=== PATIENT | male | born 1965 | race Caucasian/White ===

== ENCOUNTER 2016-09-21 09:26 | Emergency (ER) | payer MEDICARE ==
[2016-09-21 09:27] VITALS: BMI 35.5
[2016-09-21 09:33] VITALS: TEMP 98.2
--- NOTE | 2016-09-21 10:06 | ED PDOC ---
Arrival/HPI - General Chief Complaint: High Blood Sugar Time Seen by Provider: 09/21/16 10:05 Historian: Patient - History of Present Illness Narrative History of Present Illness (Text): 09/21/16 10:05 51 year old male whose past medical history includes IDDM presents to the emergency department complaining of elevated blood sugar last night. Denies blurry vision, increased urination, nausea, or vomiting. Patient also reports left thigh discomfort and is concerned due to history of DVT. Time/Duration: 24 hours Symptom Onset: Gradual Symptom Course: Unchanged Associated Symptoms (Text): None Past Medical History - Provider Review Nursing Documentation Reviewed: Yes - Infectious Disease Hx of Infectious Diseases: None - Tetanus Immunization Tetanus Immunization: Unknown - Cardiac Hx Cardiac Disorders: Yes Hx Hypertension: Yes - Pulmonary Hx Respiratory Disorders: No - Neurological Hx Neurological Disorder: No - HEENT Hx HEENT Disorder: Yes Other/Comment: wears glasses - Renal Hx Renal Disorder: No Hx Dialysis: No - Endocrine/Metabolic Hx Endocrine Disorders: Yes Hx Diabetes Mellitus Type 1: Yes - Hematological/Oncological Hx Blood Disorders: No - Integumentary Hx Dermatological Disorder: No Other/Comment: Cellulitis of the right leg in the past - Musculoskeletal/Rheumatological Hx Musculoskeletal Disorders: Yes Hx Herniated Disk: Yes Other/Comment: sciatic nerve pain - Gastrointestinal Hx Gastrointestinal Disorders: No - Genitourinary/Gynecological Hx Genitourinary Disorders: No - Psychiatric Hx Psychophysiologic Disorder: Yes Hx Depression: Yes Hx Emotional Abuse: No Hx Physical Abuse: No Hx Substance Use: No - Surgical History Hx Orthopedic Surgery: Yes (left knee) - Anesthesia Hx Anesthesia: Yes Hx Anesthesia Reactions: No Hx Malignant Hyperthermia: No - Suicidal Assessment Feels Threatened In Home Enviroment: No Family/Social History - Physician Review Nursing Documentation Reviewed: Yes Family/Social History: Unknown Family HX Smoking Status: Never Smoked Hx Alcohol Use: No Hx Substance Use: No Hx Substance Use Treatment: No Allergies/Home Meds Allergies/Adverse Reactions: Allergies No Known Allergies Allergy (Verified 09/21/16 09:34) Home Medications: Home Meds Medication Instructions Recorded Confirmed Saxagliptin HCl/Metformin HCl 1 ter PO BID 09/14/12 12/30/15 [Kombiglyze Xr 500 mg-5 mg] Cyclobenzaprine [Flexeril] 1 tab PO BID 05/17/13 12/30/15 Diclofenac [Diclofenac] 75 mg PO DAILY 05/17/13 12/30/15 Insulin Detemir [Levemir Flexpen] 20 units SQ ACHS 10/24/14 12/30/15 Review of Systems - Physician Review All systems were reviewed & negative as marked: Yes Physical Exam - Physical Exam Narrative Physical Exam (Text): - Review of Systems Constitutional: Normal. absent: Fatigue, Weight Change, Fevers Eyes: Normal absent: Blurry vision ENT: Normal Respiratory: Normal absent: SOB, Cough, Sputum Cardiovascular: Left thigh discomfort absent: Chest pain, Palpitations, Syncope Gastrointestinal: Normal absent: Abdominal pain, Diarrhea, Nausea, Vomiting Genitourinary: Normal. absent: Dysuria, Frequency, Hematuria Musculoskeletal: Normal. absent: Arthralgias, Back Pain, Neck Pain Skin: Normal Neurological: Normal absent: Focal Weakness Endocrine: Normal Hemo/Lymphatic: Normal Psychiatric: Normal - Physical exam Patient appears age appropriate, speaking full sentences without difficulty - Systems Exam Head: Present: Atraumatic, Normocephalic Pupils: Present: PERRL Extraocular Muscles: Present: EOMI Conjunctiva: Present: Normal Mouth: Present: Moist Mucous Membranes Neck: Present: Normal Range of Motion. No: MIDLINE TENDERNESS, Paraspinal Tenderness Respiratory/Chest: Present: Clear to Auscultation, Good Air Exchange. No: Respiratory Distress, Accessory Muscle Use, Tachypneic Cardiovascular: Present: Regular Rate and Rhythm, Normal S1, S2, Peripheral Pulses Present. No: Murmurs Abdomen: Present: Normal Bowel Sounds, No: Tenderness, Peritoneal Signs, Rebound, Guarding, Distention Back: Present: Normal Inspection. No: Midline Tenderness, Paraspinal Tenderness Upper Extremity: Present: Normal Inspection. No: Cyanosis, Edema Lower Extremity: Present: Normal Inspection. No: Edema Neurological: Present: GCS=15, Speech Normal, cranial nerves II through XII fully intact with no cerebellar abnormality, neuro-sensory fully intact. No focal neurological deficits. Skin: Present: Warm, Dry, Normal Color. No: Rashes Lymphatic: Present: OX3, NI, NC Psychiatric: Present: Alert, Oriented x 3, Normal Insight, Normal Concentration Vital Signs Reviewed: Yes Vital Signs Temp Pulse Resp BP Pulse Ox 09/21/16 13:40 64 16 112/69 99 09/21/16 11:26 69 18 121/82 98 09/21/16 09:29 98.2 F 75 16 123/84 98 Temperature: Afebrile Blood Pressure: Normal Pulse: Regular Respiratory Rate: Normal Appearance: Positive for: Well-Appearing, Non-Toxic, Comfortable Pain Distress: None Mental Status: Positive for: Alert and Oriented X 3 Finger Stick Blood Glucose: 190 Medical Decision Making ED Course and Treatment: Impression: 51 year old male whose past medical history includes IDDM presents to the emergency department complaining of elevated blood sugar last night. On physical exam, patient has no acute findings. Plan: -- US lower extremity -- Labs -- Reassess and disposition Progress Notes: Ultrasound Extremity Adobe Maker : Luis F Mcgregor MD Report Date : 09/21/2016 14:29:58 FINDINGS: The visualized deep venous systems of both lower extremities are sonographically normal and compressible. Normal wave forms and augmentation are seen. There is no sonographic evidence for deep venous thrombosis in the visualized segments of both lower extremities. IMPRESSION: No sonographic evidence for deep venous thrombosis in the visualized segments of both lower extremities. 09/21/16 14:33 pt has no gap US neg for DVT per tech pt in no distress, denies complaints at this time states he feels comfortable being dc'd home with outpatient fu pt denies cp/sob/ibrahim/n/v/abd pain Pt states he understands to return to the ER right away for new or worsening symptoms or for inability to f/u with PMD or specialist as instructed. Patient states that he fully agrees with and understands discharge instructions. States that he agrees with the plan and disposition. Verbalized and repeated discharge instructions and plan. I have given the patient opportunity to ask any additional questions. - Lab Interpretations Lab Results: 09/21/16 10:30 09/21/16 10:30 Lab Results 09/21/16 10:30: pO2 36, VBG pH 7.31 L, VBG pCO2 54.0, VBG HCO3 27.2, VBG O2 Sat (Calc) 70.3 H, VBG Base Excess 0.0 09/21/16 10:30: Sodium 135, Potassium 4.3, Chloride 101, Carbon Dioxide 26, Anion Gap 12, BUN 11, Creatinine 0.7, Est GFR ( Amer) > 60, Est GFR (Non- Af Amer) > 60, Random Glucose 249 H, Calcium 9.7, Total Bilirubin 0.5, AST 58, ALT 70 H, Alkaline Phosphatase 99, Total Protein 7.6, Albumin 4.2, Globulin 3.4 , Albumin/Globulin Ratio 1.2 09/21/16 10:30: WBC 10.7, RBC 4.79, Hgb 14.5, Hct 42.0, MCV 87.7, MCH 30.3, MCHC 34.5, RDW 13.1, Plt Count 334, MPV 9.6, Gran % 51.7, Lymph % (Auto) 37.7 H , [place] % (Auto) 6.8 H, Eos % (Auto) 3.0, Baso % (Auto) 0.8, Gran # 5.55, Lymph # 4.1 H, [place]oup # 0.7 H, Eos # 0.3, Baso # 0.09 09/21/16 10:07: Urine Color Yellow, Urine Appearance Sl cloudy, Urine pH 6.0, Ur Specific [place] 1.020, Urine Protein Negative, Urine Glucose (UA) 100 H, Urine Ketones Negative, Urine Blood Trace-intact H, Urine Nitrate Negative, Urine Bilirubin Negative, Urine Urobilinogen 0.2, Ur Leukocyte Esterase Small H , Urine RBC 0 - 2, Urine WBC 0 - 2, Ur Epithelial Cells 0 - 2 - RAD Interpretation Radiology Orders: 09/21/16 10:07 DUPLEX LOWER EXTRM VEIN BILAT [US] Stat - Medication Orders Current Medication Orders: Discontinued Medications Sodium Chloride (Sodium Chloride 0.9%) 1,000 mls @ 1,000 mls/hr IV .Q1H STA Stop: 09/21/16 11:07 Last Admin: 09/21/16 11:35 Dose: 1,000 mls/hr - Scribe Statement The provider has reviewed the documentation as recorded by the Dottie Wagner Provider Scribe Attestation: All medical record entries made by the Dottie were at my direction and personally dictated by me. I have reviewed the chart and agree that the record accurately reflects my personal performance of the history, physical exam, medical decision making, and the department course for this patient. I have also personally directed, reviewed, and agree with the discharge instructions and disposition. Disposition/Present on Arrival - Present on Arrival Any Indicators Present on Arrival: No History of DVT/PE: No History of Uncontrolled Diabetes: No Urinary Catheter: No History of Decub. Ulcer: No History Surgical Site Infection Following: None - Disposition Have Diagnosis and Disposition been Completed?: Yes Diagnosis: Hyperglycemia Disposition: HOME/ ROUTINE Disposition Time: 14:37 Patient Plan: Discharge Patient Problems: Current Active Problems Problem Status Onset Hyperglycemia Acute Condition: GOOD Discharge Instructions (ExitCare): Diabetic Hyperglycemia (ED) Additional Instructions: PLEASE RETURN TO THE EMERGENCY DEPARTMENT FOR NEW OR WORSENING SYMPTOMS. RETURN RIGHT AWAY IF YOU CANNOT FOLLOW UP WITH YOUR PRIMARY CARE DOCTOR, CLINIC, OR SPECIALIST IN 1-2 DAYS. Referrals: Albert Michaels MD [Primary Care Provider] - Follow up with primary [facility] at [facility] [place] [Outside] - Follow up with primary
[2016-09-21] MEDS ORDERED: Sodium Chloride 0.9% 1,000 ML IV STA (10:08)
[2016-09-21 11:35] LABS: ADD MANUAL DIFF? NO
[2016-09-21 11:39] LABS: VENOUS BLOOD PH 7.31 (7.32-7.43)
[2016-09-21 11:40] LABS: BASO # 0.09 K/mm3 (0.0-2.0); BASO % 0.8 % (0.0-3.0); EOS # 0.3 (0.0-0.7); GRAN # 5.55 (1.4-6.5); GRAN % 51.7 % (50.0-68.0); LYMPH # 4.1 (1.2-3.4); LYMPH % 37.7 % (22.0-35.0); MEAN CELL VOLUME 87.7 fL (80.0-105.0); MEAN CORPUSCULAR HEMOGLOBIN 30.3 pg (25.0-35.0); MEAN CORPUSCULAR HGB CONC 34.5 g/dl (31.0-37.0); MEAN PLATELET VOLUME 9.6 fl (7.0-11.0); MONO # 0.7 (0.1-0.6); MONO % 6.8 % (1.0-6.0); PLATELET COUNT 334 10^3/uL (120.0-450.0); RED CELL DISTRIBUTION WIDTH 13.1 % (11.5-14.5); WHITE BLOOD COUNT 10.7 10^3/ul (4.5-11.0)
[2016-09-21 11:53] LABS: ALB/GLOB RATIO 1.2 (1.1-1.8); ALKALINE PHOSPHATASE 99 U/L (38-133); ALT/SGPT 70 U/L (7-56); AST/SGOT 58 U/L (15-59); BILIRUBIN,TOTAL 0.5 mg/dL (0.2-1.3); BLOOD UREA NITROGEN 11 mg/dL (7-21); CALCIUM 9.7 mg/dL (8.4-10.5); CARBON DIOXIDE 26 mmol/L (21-33); CHLORIDE 101 mmol/L (98-107); GFR AFRICAN-AMERICAN > 60; GLUCOSE,RANDOM 249 mg/dL (70-110); POTASSIUM 4.3 mmol/L (3.6-5.0); SODIUM 135 mmol/L (132-148); TOTAL PROTEIN 7.6 g/dL (5.8-8.3)
[2016-09-21 13:42] VITALS: BP 112/69; RESP 16; O2SAT 99
[2016-09-21 13:56] LABS: URINE BILIRUBIN NEGATIVE (NEGATIVE); URINE BLOOD TRACE-INTACT (NEGATIVE); URINE GLUCOSE (UA) 100 mg/dL (NEGATIVE); URINE KETONE NEGATIVE (NEGATIVE); URINE LEUKOCYTE ESTERASE SMALL Leu/uL (NEGATIVE); URINE PROTEIN NEGATIVE mg/dL (<30 mg/dL); URINE UROBILINOGEN 0.2 E.U./dL (<1 E.U./dL)
[2016-09-21 13:59] LABS: URINE APPEARANCE SL CLOUDY (CLEAR); URINE COLOR YELLOW (YELLOW)
[2016-09-21 14:00] VITALS: PULSE 64
[2016-09-21 14:05] LABS: URINE EPITHELIAL CELLS 0 - 2 /hpf (0-5); URINE RBC 0 - 2 /hpf (0-2); URINE WBC 0 - 2 /hpf (0-6)
--- NOTE | 2016-09-21 14:31 | US ---
HISTORY: Leg pain and swelling. Evaluate for DVT PHYSICIAN(S): Luis F Curran MD. TECHNIQUE: Duplex sonography and color-flow Doppler with graded compression were used to evaluate the deep venous systems of both lower extremities. FINDINGS: The visualized deep venous systems of both lower extremities are sonographically normal and compressible. Normal wave forms and augmentation are seen. There is no sonographic evidence for deep venous thrombosis in the visualized segments of both lower extremities. IMPRESSION: No sonographic evidence for deep venous thrombosis in the visualized segments of both lower extremities.
== END 2016-09-21 15:00 | disposition home or self-care (01) ==
LOC: ED 09:26
DX: E11.65 Type 2 diabetes mellitus with hyperglycemia (principal); Z79.4 Long term (current) use of insulin; I10 Essential (primary) hypertension
CPT/HCPCS: 80053; 81001; 82803; 85025; 93970; 99284; J7040

== ENCOUNTER 2018-06-14 10:14 | Inpatient (IN) | payer MEDICARE, OTHER ==
[2018-06-14 11:03] VITALS: BMI 28.3
[2018-06-14] MEDS ORDERED: Morphine 4 mg/ml ISec IVP STA (11:54)
[2018-06-14 12:11] LABS: BASO # 0.06 K/mm3 (0.0-2.0); BASO % 0.5 % (0.0-3.0); EOS # 0.2 (0.0-0.7); EOS % 1.8 % (1.5-5.0); LYMPH # 3.4 (1.2-3.4); LYMPH % 28.2 % (22.0-35.0); MEAN CORPUSCULAR HEMOGLOBIN 30.6 pg (25.0-35.0); MEAN PLATELET VOLUME 9.2 fl (7.0-11.0); MONO # 0.8 (0.1-0.6); MONO % 6.5 % (1.0-6.0); RBC 4.9 10^6/uL (3.5-6.1); RED CELL DISTRIBUTION WIDTH 13.1 % (11.5-14.5); WHITE BLOOD COUNT 11.9 10^3/uL (4.5-11.0)
[2018-06-14 12:21] LABS: BLOOD UREA NITROGEN 12 mg/dL (7-21); CALCIUM 9.9 mg/dL (8.4-10.5); GFR NON-AFRICAN AMERICAN > 60
--- NOTE | 2018-06-14 13:20 | ED PDOC ---
Arrival/HPI - General Chief Complaint: Groin Pain Time Seen by Provider: 06/14/18 11:11 Historian: Patient - History of Present Illness Narrative History of Present Illness (Text): 06/14/18 12:45 52 M with PMHx of hypertension, diabetes, diabetic neuropathy, cellulitis of the right leg, and sciatic nerve pain, nkda, presents with cc of a painful "big infection" in his groin area for the past 8 days. Patient states his PMD pres cribed him a cream that he has been using 'a lot", with no significant relief. Pt reports he has had similar symptoms in the past, but notes it has never been as painful as it is currently. Patient states his skin has never been this tight when he has experienced these symptoms in the past. Patient notes his infection is "not from walking." Patient notes the redness began about 8 days ago. Patient notes dysuria. Pt denies any other complaints at this time. Urologist: Patient did not mention specific Doctor, but noted Johann PMD: Donna Chua Time/Duration: < week (Patient notes symptoms began 8 days ago) Symptom Onset: Sudden Symptom Course: Unchanged Activities at Onset: Light Past Medical History - Provider Review Nursing Documentation Reviewed: Yes - Infectious Disease Hx of Infectious Diseases: None - Tetanus Immunization Tetanus Immunization: Unknown - Cardiac Hx Cardiac Disorders: Yes Hx Hypertension: Yes - Pulmonary Hx Respiratory Disorders: No - Neurological Hx Neurological Disorder: No - HEENT Hx HEENT Disorder: Yes Other/Comment: wears glasses - Renal Hx Renal Disorder: No Hx Dialysis: No - Endocrine/Metabolic Hx Endocrine Disorders: Yes Hx Diabetes Mellitus Type 1: Yes Other/Comment: Diabetic neuropathy - Hematological/Oncological Hx Blood Disorders: No - Integumentary Hx Dermatological Disorder: No Other/Comment: Cellulitis of the right leg in the past - Musculoskeletal/Rheumatological Hx Musculoskeletal Disorders: Yes Hx Herniated Disk: Yes Other/Comment: sciatic nerve pain - Gastrointestinal Hx Gastrointestinal Disorders: No - Genitourinary/Gynecological Hx Genitourinary Disorders: No - Psychiatric Hx Psychophysiologic Disorder: Yes Hx Depression: Yes Hx Emotional Abuse: No Hx Physical Abuse: No Hx Substance Use: No - Surgical History Hx Orthopedic Surgery: Yes (left knee) Other/Comment: back surgery - Anesthesia Hx Anesthesia: Yes Hx Anesthesia Reactions: No Hx Malignant Hyperthermia: No - Suicidal Assessment Feels Threatened In Home Enviroment: No Family/Social History - Physician Review Nursing Documentation Reviewed: Yes Family/Social History: No Known Family HX Smoking Status: Never Smoked Hx Alcohol Use: No Hx Substance Use: No Hx Substance Use Treatment: No Allergies/Home Meds Allergies/Adverse Reactions: Allergies No Known Allergies Allergy (Verified 09/21/16 09:34) Home Medications: Home Meds Medication Instructions Recorded Confirmed Cyclobenzaprine [Flexeril] 10 mg PO BID 05/17/13 06/14/18 Atorvastatin [Lipitor] 20 mg PO DAILY 06/14/18 06/14/18 Diclofenac Sodium 50 mg PO BID PRN 06/14/18 06/14/18 Gabapentin [Neurontin] 300 mg PO TID 06/14/18 06/14/18 Lisinopril [Zestril] 5 mg PO DAILY 06/14/18 06/14/18 Nortriptyline [Pamelor] 20 mg PO HS 06/14/18 06/14/18 Sitagliptin Phos/Metformin HCl 1 tab PO BID 06/14/18 06/14/18 [Janumet 50-500 mg Tablet] Review of Systems - Physician Review All systems were reviewed & negative as marked: Yes (All other systems negative except that noted in the HPI.) Physical Exam - Physical Exam Narrative Physical Exam (Text): Gen: VS reviewed, alert, well developed, well nourished, nontoxic, mild distress Eye: EOMI, PERRL Neck: no JVD, supple, no adenopathy CV: regular rate, regular rhythm, no rubs,no murmur, S1, S2 Pulm: no distress, clear to auscultation, no wheeze, no rhonchi, breath sounds equal, no rales Abd: soft, nontender, no guarding, no rebound, no rigidity Ext: no edema Genitourinary Male: tense tissue of the distal foreskin, however it retracts over the glans easily. No ischemia of the distal glans penis. Skin: extensive area of redness in peroneal including the proximal thighs, scrotum, and penis. Psych: responds appropriately to questions, normal affect Neuro: oriented x3, CN2-12 intact grossly, motor intact, sensation intact Vital Signs Reviewed: Yes Vital Signs Temp Pulse Resp BP Pulse Ox 06/14/18 11:02 98.3 F 86 18 124/81 100 Temperature: Afebrile Blood Pressure: Normal Pulse: Regular Respiratory Rate: Normal Appearance: Positive for: Well-Appearing, Non-Toxic Pain Distress: Mild Mental Status: Positive for: Alert and Oriented X 3 Medical Decision Making ED Course and Treatment: 06/14/18 12:45 Impression: 52 year old male who presents to the Emergency department for a painful infection to his groin area for the past 8 days. Differential Diagnosis included but are not limited to: Plan: -- CT of pelvis w/ IV contrast -- Labs -- Morphine -- Reassess and disposition Prior Visits: Notes and results from previous visits were reviewed. Progress Notes: 06/14/18 14:[address] rivera to the hospitalist service. patient to be admitted for iv abx for extensive perineum cellulitis, CT negative for any gross fluid collection. patient is diabetic and at risk for complicated skin infection. late note: case was discussed with dr. yaneli shannon and will see pt in consultation - RAD Interpretation Narrative RAD Interpretations (Text): CT of pelvis reviewed by radiologist, shows: Dictated By: Greg Corona MD Dictated Date/Time: 06/14/18 14:01 Impression: Unremarkable contrast enhanced CT of the pelvis. Radiology Orders: 06/14/18 12:53 PELVIS W/IV CONTRAST ONLY [CT] Stat Computer Installation Engineer: Radiologist - Medication Orders Current Medication Orders: Discontinued Medications Morphine Sulfate (Morphine) 4 mg IVP STAT STA Stop: 06/14/18 11:55 Last Admin: 06/14/18 12:05 Dose: 4 mg CLARA Pain Assessment Document 06/14/18 12:05 GMD (Rec: 06/14/18 12:05 D [id number]) Pain Reassessment Is this a pain reassessment? No Description Intensity of Pain at present 10 IVP Administration Document 06/14/18 12:05 GMD (Rec: 06/14/18 12:05 GMD [id number]) Charges for Administration # of IVP Administrations 1 - Scribe Statement The provider has reviewed the documentation as recorded by the Scribe Purnima Fuentes All medical record entries made by the Scribe were at my direction and personally dictated by me. I have reviewed the chart and agree that the record accurately reflects my personal performance of the history, physical exam, medical decision making, and the department course for this patient. I have also personally directed, reviewed, and agree with the discharge instructions and disposition. Disposition/Present on Arrival - Present on Arrival Any Indicators Present on Arrival: No History of DVT/PE: No History of Uncontrolled Diabetes: No Urinary Catheter: No History of Decub. Ulcer: No History Surgical Site Infection Following: None - Disposition Have Diagnosis and Disposition been Completed?: Yes Diagnosis: Cellulitis Disposition: HOSPITALIZED Disposition Time: 14:39 Patient Plan: Admission Condition: STABLE
[2018-06-14] MEDS ORDERED: Iohexol 350 MG/100 ML VIAL ONE (13:22)
--- NOTE | 2018-06-14 14:05 | CT ---
Date of service: 06/14/2018 PROCEDURE: CT Pelvis with contrast HISTORY: perineal pain COMPARISON: None available. TECHNIQUE: Contiguous axial images of the pelvis with contrast. Coronal and sagittal reformats generated. Contrast dose: 100 cc of Omni 350 Radiation dose: Total exam DLP = 784.08 mGy-cm. This CT exam was performed using one or more of the following dose reduction techniques: Automated exposure control, adjustment of the mA and/or kV according to patient size, and/or use of iterative reconstruction technique. FINDINGS: BLADDER: Unremarkable. No mass. REPRODUCTIVE ORGANS: Unremarkable. VISUALIZED BOWEL: Unremarkable. PERITONEUM: Unremarkable, as visualized. No free fluid. No free air. LYMPH NODES: Unremarkable. No enlarged lymph nodes. VASCULATURE: No aortic atherosclerotic calcification or mural plaque present. BONES: No fracture or focal lesion. OTHER FINDINGS: None. IMPRESSION: Unremarkable contrast enhanced CT of the pelvis.
[2018-06-14] MEDS ORDERED: Vancomycin 500 mg Inj IVPB STA (14:25)
[2018-06-14] MEDS ORDERED: Piperacillin/Tazobact 3.375 gm 100 ML IVPB STA (14:34)
--- NOTE | 2018-06-14 16:33 | CP.PCM.HP ---
<Renetta Holloway - Last Filed: 06/14/18 16:24> History of Present Illness - History of Present Illness History of Present Illness: Renetta Holloway, PGY-1, Internal Medicine History and Physical for Dr. Keenan 52 year old with past medical history of hypertension, diabetes mellitus, hyperlipidemia, neuropathy, arthritis, and chronic back pain presented with a perineal rash for 8 days. Patient reported that the rash was red, warm, and erythematous. He reported that he has a laceration of his penis prior this episode starting. He has had cellulitis of this area before treated with antibiotics that he cannot remember but the cellulitis was never this bad. For this episode of cellulitis, he used cortisone cream, allergel, ammonium lactate, triple antibiotic cream, and petroleum jelly with no improvement in his erythema or swelling. He reports subjective fevers and chills. He says that he takes his medications but that his glucose has still been uncontrolled. He denies any other symptoms including chest pain, heart palpitations, shortness of breath, cough, nausea, vomiting, constipation, diarrhea, dysuria, hematuria. 12-point ROS was unremarkable except for what was mentioned above. PMH: as mentioned above PSH: disc surgery in low back 5 years ago, left knee surgery in 2011 FMHx: mother has diabetes, sister has kidney disease, and father had kidney disease SHx: patient smoked from age [age] but has not had a cigarette since, he denies alcohol and recreational drug use Allergies: seasonal PMD: Dr. Zavala Urologist: in [facility] [employer]rier: in [facility] Medications: updated MAR Present on Admission - Present on Admission Any Indicators Present on Admission: No Review of Systems - Review of Systems Review of Systems: except as in HPI Past Patient History - Infectious Disease Hx of Infectious Diseases: None - Tetanus Immunizations Tetanus Immunization: Unknown - Past Social History Smoking Status: Never Smoked - CARDIAC Hx Cardiac Disorders: Yes Hx Hypertension: Yes - PULMONARY Hx Respiratory Disorders: No - NEUROLOGICAL Hx Neurological Disorder: No - HEENT Hx HEENT Problems: Yes Other/Comment: wears glasses - RENAL Hx Chronic Kidney Disease: No Hx Dialysis: No - ENDOCRINE/METABOLIC Hx Endocrine Disorders: Yes Hx Diabetes Mellitus Type 1: Yes Other/Comment: Diabetic neuropathy - HEMATOLOGICAL/ONCOLOGICAL Hx Blood Disorders: No - INTEGUMENTARY Hx Dermatological Problems: No Other/Comment: Cellulitis of the right leg in the past - MUSCULOSKELETAL/RHEUMATOLOGICAL Hx Musculoskeletal Disorders: Yes Hx Herniated Disk: Yes Other/Comment: sciatic nerve pain - GASTROINTESTINAL Hx Gastrointestinal Disorders: No - GENITOURINARY/GYNECOLOGICAL Hx Genitourinary Disorders: No - PSYCHIATRIC Hx Psychophysiologic Disorder: Yes Hx Depression: Yes Hx Emotional Abuse: No Hx Physical Abuse: No Hx Substance Use: No - SURGICAL HISTORY Hx Orthopedic Surgery: Yes (left knee) Other/Comment: back surgery - ANESTHESIA Hx Anesthesia: Yes Hx Anesthesia Reactions: No Hx Malignant Hyperthermia: No Meds Allergies/Adverse Reactions: Allergies Allergy/AdvReac Type Severity Reaction Status Date / Time No Known Allergies Allergy Verified 09/21/16 09:34 Physical Exam - Constitutional Appears: Well, Non-toxic, No Acute Distress - Head Exam Head Exam: ATRAUMATIC, NORMAL INSPECTION, NORMOCEPHALIC - Eye Exam Eye Exam: EOMI, PERRL - ENT Exam ENT Exam: Mucous Membranes Moist - Respiratory Exam Respiratory Exam: Clear to Auscultation Bilateral, NORMAL BREATHING PATTERN - Cardiovascular Exam Cardiovascular Exam: REGULAR RHYTHM, RRR - GI/Abdominal Exam GI & Abdominal Exam: Normal Bowel Sounds, Soft. absent: Tenderness - Extremities Exam Extremities exam: Positive for: full ROM - Neurological Exam Neurological exam: Alert, CN II-XII Intact, Oriented x3 - Skin Skin Exam: Dry, Intact Additional comments: erythematous rash around perineal region encompassing bilateral testicles with an isolated spot on left lower extremity. Results - Vital Signs Recent Vital Signs: Last Vital Signs Temp 98.3 F 06/14/18 11:02 Pulse 78 06/14/18 13:22 Resp 18 06/14/18 13:22 BP 122/75 06/14/18 13:22 Pulse Ox 100 06/14/18 13:22 - Labs Result Diagrams: 06/14/18 11:57 06/14/18 11:57 Labs: Laboratory Results - last 24 hr 06/14/18 06/14/18 11:57 11:57 WBC 11.9 H RBC 4.90 Hgb 15.0 Hct 44.1 MCV 90.0 MCH 30.6 MCHC 34.0 RDW 13.1 Plt Count 333 MPV 9.2 Neut % (Auto) 63.0 Lymph % (Auto) 28.2 Grady % (Auto) 6.5 H Eos % (Auto) 1.8 Baso % (Auto) 0.5 Lymph # (Auto) 3.4 Grady # (Auto) 0.8 H Eos # (Auto) 0.2 Baso # (Auto) 0.06 Absolute Neuts (auto) 7.48 H Sodium 138 Potassium 4.8 Chloride 102 Carbon Dioxide 26 Anion Gap 15 BUN 12 Creatinine 0.7 L Est GFR ( Amer) > 60 Est GFR (Non-Af Amer) > 60 Random Glucose 195 H Calcium 9.9 Assessment & Plan - Assessment and Plan (Free Text) Assessment: 52 year old male with past medical history of hypertension, diabetes mellitus, hyperlipidemia, neuropathy, arthritis, and chronic back pain presented with a perineum rash for 8 days. Plan: Perineal Rash -CT pelvis 06/14: no acute findings -Follow up urinanalysis, blood and urine culture -Patient was given vancomycin and zosyn in the emergency department. Patient will receive vancomycin, zosyn, and nystatin powder daily at this time -Started benadryl PRN for pruritis -Started tylenol PRN for pain -Dr. Hunter, ID, consulted for recommendations -Dr. Yancey, Urology, consulted for recommendations Hypertension -Started home zestril 5 mg daily Diabetes mellitus and diabetic neuropathy -Follow up HgbA1c -Started low dose SSI. If glucose is controlled, increase SSI -Started home pamelor and neurontin for diabetic neuropathy Hyperlipidemia -Lipid panel ordered -Started home lipitor 20 mg daily Chronic back pain -Continue with home flexeril GI prophylaxis: protonix 40 mg dialy DVT prophylaxis: SCD Patient plan discussed with attending. - Date & Time Date: 06/14/18 Time: 16:35 <Celine Keenan - Last Filed: 06/14/18 16:50> Results - Vital Signs Recent Vital Signs: Last Vital Signs Temp 98.3 F 06/14/18 11:02 Pulse 78 06/14/18 13:22 Resp 18 06/14/18 13:22 BP 122/75 06/14/18 13:22 Pulse Ox 100 06/14/18 13:22 - Labs Result Diagrams: 06/14/18 11:57 06/14/18 11:57 Labs: Laboratory Results - last 24 hr 06/14/18 06/14/18 11:57 11:57 WBC 11.9 H RBC 4.90 Hgb 15.0 Hct 44.1 MCV 90.0 MCH 30.6 MCHC 34.0 RDW 13.1 Plt Count 333 MPV 9.2 Neut % (Auto) 63.0 Lymph % (Auto) 28.2 Grady % (Auto) 6.5 H Eos % (Auto) 1.8 Baso % (Auto) 0.5 Lymph # (Auto) 3.4 Grady # (Auto) 0.8 H Eos # (Auto) 0.2 Baso # (Auto) 0.06 Absolute Neuts (auto) 7.48 H Sodium 138 Potassium 4.8 Chloride 102 Carbon Dioxide 26 Anion Gap 15 BUN 12 Creatinine 0.7 L Est GFR ( Amer) > 60 Est GFR (Non-Af Amer) > 60 Random Glucose 195 H Calcium 9.9 Attending/Attestation - Attestation I have personally seen and examined this patient.: Yes I have fully participated in the care of the patient.: Yes I have reviewed all pertinent clinical information: Yes Notes (Text): 06/14/18 16:46 52 year old male with past medical history of hypertension, diabetes, and chronic back pain who presents with perineal rash for past few days. Pelvic CT was negative. Started on iv antibiotics and antifungal. ID and urology evaluation are requested. Continue with levemir and insulin ss for diabetes. Celine Keenan MD Hospitalist.
[2018-06-14 17:30] LABS: HDL CHOLESTEROL 25 mg/dL (29-60)
[2018-06-14 17:40] LABS: LDL CHOLESTEROL 99 mg/dL (0-129)
[2018-06-14 17:40] LABS: URINE BILIRUBIN NEGATIVE (NEGATIVE); URINE BLOOD NEGATIVE (NEGATIVE); URINE GLUCOSE (UA) NEGATIVE (NEGATIVE); URINE LEUKOCYTE ESTERASE NEGATIVE Leu/uL (NEGATIVE); URINE PROTEIN NEGATIVE mg/dL (<30 mg/dL); URINE UROBILINOGEN 0.2 E.U./dL (<1 E.U./dL)
[2018-06-14 17:52] LABS: URINE APPEARANCE CLEAR (CLEAR); URINE COLOR YELLOW (YELLOW)
[2018-06-14] MEDS: Insulin Detemir 100 units/ml Vial (Levemir) SC SCH (18:13)
[2018-06-14] MEDS: Insulin Reg-LOW-Coverage SC SCH ×2 (18:14→23:07)
[2018-06-14] MEDS: Nystatin 100,000 Units/gm Topical Pow(15 gm) TOP SCH (18:14)
[2018-06-14 20:18] VITALS: RESP 18
[2018-06-14] MEDS ORDERED: Pneumococcal 23-Valent Vaccine IM ONE (20:18)
[2018-06-14] MEDS ORDERED: Influenza Vaccine 60 mcg/0.5 mL SYR (4YR UP) IM ONE (20:18)
[2018-06-14] MEDS ORDERED: Piperacillin/Tazobact 3.375 gm 100 ML IVPB SCH (22:00)
[2018-06-14] MEDS: Meropenem IV 1 gm in NS 1 GM/50 ML BAG IVPB SCH (22:07)
[2018-06-14] MEDS: Vancomycin 1gm in NS 250ml 1 GM/250 ML BAG IVPB SCH (22:07)
[2018-06-15] MEDS: Meropenem IV 1 gm in NS 1 GM/50 ML BAG IVPB SCH ×3 (05:41→21:24)
[2018-06-15 07:26] LABS: BASO # 0.06 K/mm3 (0.0-2.0); BASO % 0.5 % (0.0-3.0); EOS # 0.3 (0.0-0.7); EOS % 2.6 % (1.5-5.0); LYMPH # 4.2 (1.2-3.4); LYMPH % 37.9 % (22.0-35.0); MEAN CELL VOLUME 90.3 fl (80.0-105.0); MEAN CORPUSCULAR HEMOGLOBIN 29.7 pg (25.0-35.0); MEAN CORPUSCULAR HGB CONC 32.9 g/dl (31.0-37.0); MEAN PLATELET VOLUME 9.4 fl (7.0-11.0); MONO # 0.9 (0.1-0.6); MONO % 7.9 % (1.0-6.0); RBC 4.72 10^6/uL (3.5-6.1)
[2018-06-15 07:33] LABS: ALB/GLOB RATIO 1.2 (1.1-1.8); ALBUMIN 3.8 g/dL (3.0-4.8); ALT/SGPT 31 U/L (7-56); AST/SGOT 31 U/L (17-59); BLOOD UREA NITROGEN 13 mg/dL (7-21); CALCIUM 9.3 mg/dL (8.4-10.5); GFR NON-AFRICAN AMERICAN > 60
[2018-06-15] MEDS: Insulin Reg-LOW-Coverage SC SCH (08:07)
--- NOTE | 2018-06-15 08:26 | CP.PCM.PN ---
<Renaldo Tolentino - Last Filed: 06/15/18 12:14> Subjective - Date & Time of Evaluation Date of Evaluation: 06/15/18 Time of Evaluation: 08:26 - Subjective Subjective: PGY-1 Medicine progress note for Dr. Keenan Patient seen and examined at bedside. No acute events overnight. Patient remains to be afebrile. He states that he only feels the pain on the skin around his testicles when he is walking. He denies fevers, chills, shortness of breath, chest pain, abdominal pain, or any other complaints at this time. Objective - Vital Signs/Intake and Output Vital Signs (last 24 hours): Temp Pulse Resp BP Pulse Ox 97.6 F 69 18 128/86 97 06/15/18 06:00 06/15/18 06:00 06/15/18 06:00 06/15/18 06:00 06/15/18 06:00 Intake and Output: 06/15/18 06/15/18 06:59 18:59 Intake Total 1110 Balance 1110 - Medications Medications: Current Medications Acetaminophen (Tylenol 325mg Tab) 650 mg PO Q6H PRN PRN Reason: Pain, moderate (4-7) Last Admin: 06/14/18 18:13 Dose: 650 mg Atorvastatin Calcium (Lipitor) 20 mg PO DIN [facility] Cyclobenzaprine HCl (Flexeril) 5 mg PO BID [facility] Last Admin: 06/14/18 18:12 Dose: 5 mg Gabapentin (Neurontin) 600 mg PO TID [facility]; Protocol Last Admin: 06/14/18 18:12 Dose: 600 mg Vancomycin HCl (Vancomycin 1gm) 1 gm in 250 mls @ 167 mls/hr IVPB Q12 [facility]; Protocol Last Admin: 06/14/18 22:07 Dose: Not Given Meropenem (Merrem Iv 1 Gm Premix) 1 gm in 50 mls @ 100 mls/hr IVPB Q8 [facility]; Protocol Last Admin: 06/15/18 05:41 Dose: 100 mls/hr Insulin Detemir (Levemir) 25 unit SC BID [facility] Last Admin: 06/14/18 18:13 Dose: 25 units Insulin Human Regular (Humulin R Low) 0 units SC ACHS [facility]; Protocol Last Admin: 06/15/18 08:07 Dose: 1 units Lisinopril (Zestril) 5 mg PO DAILY [facility] Nortriptyline HCl (Pamelor) 20 mg PO HS [facility] Last Admin: 06/14/18 21:25 Dose: 20 mg Nystatin (Nystop Topical Powder) 0 gm TOP BID [facility] Last Admin: 06/14/18 18:14 Dose: 1 appl Pantoprazole Sodium (Protonix Ec Tab) 40 mg PO DAILY [facility] - Labs Labs: 06/15/18 07:00 06/15/18 07:00 - Additional Findings Additional findings: - Constitutional Appears: Well, Non-toxic, No Acute Distress - Head Exam Head Exam: ATRAUMATIC, NORMAL INSPECTION, NORMOCEPHALIC - Eye Exam Eye Exam: EOMI, PERRL - ENT Exam ENT Exam: Mucous Membranes Moist - Respiratory Exam Respiratory Exam: Clear to Auscultation Bilateral, NORMAL BREATHING PATTERN - Cardiovascular Exam Cardiovascular Exam: REGULAR RHYTHM, RRR - GI/Abdominal Exam GI & Abdominal Exam: Normal Bowel Sounds, Soft. absent: Tenderness - Extremities Exam Extremities exam: Positive for: full ROM - Neurological Exam Neurological exam: Alert, CN II-XII Intact, Oriented x3 - Skin Skin Exam: Dry, Intact Additional comments: erythematous rash around perineal region encompassing bilateral testicles. Assessment and Plan - Assessment and Plan (Free Text) Assessment: 52 year old male with past medical history of hypertension, diabetes mellitus, hyperlipidemia, neuropathy, arthritis, and chronic back pain, presenting with a perineum rash. Plan: Perineal Rash - CT pelvis 06/14: no acute findings - Vancomycin 1g IV Q12 (Started on 06/14) - Merrem 1g IV Q8 (Started on 06/14) - Nystatin powder - Benadryl PRN for pruritis - Tylenol PRN for pain - Dr. Hunter, ID consulted - Dr. Yancey, Urology consulted - UA: negative - Urine culture: pending - Blood culture: pending - HIV: pending Hypertension - Continue Zestril 5 mg daily Diabetes mellitus and diabetic neuropathy - HgbA1c: 11.1 - ISS Medium dose - Accuchecks ACHS - Continue home Pamelor and Neurontin Hyperlipidemia - Lipid panel: Trig 223, Chol 163, LDL 99, HDL 25 - Lipitor 20 mg daily Chronic back pain - Flexeril 5mg PO BID GI prophylaxis: protonix 40 mg daily DVT prophylaxis: SCD's Patient seen and plan discussed with attending, Dr. Shlomo Tolentino, PGY-1 <Celine Keenan - Last Filed: 06/15/18 16:54> Objective - Vital Signs/Intake and Output Vital Signs (last 24 hours): Temp Pulse Resp BP Pulse Ox 98.5 F 88 18 126/82 98 06/15/18 14:56 06/15/18 14:56 06/15/18 14:56 06/15/18 14:56 06/15/18 14:56 Intake and Output: 06/15/18 06/15/18 06:59 18:59 Intake Total 1110 Balance 1110 - Medications Medications: Current Medications Acetaminophen (Tylenol 325mg Tab) 650 mg PO Q6H PRN PRN Reason: Pain, moderate (4-7) Last Admin: 06/14/18 18:13 Dose: 650 mg Atorvastatin Calcium (Lipitor) 20 mg PO DIN [facility] Cyclobenzaprine HCl (Flexeril) 5 mg PO BID [facility] Last Admin: 06/15/18 09:51 Dose: 5 mg Gabapentin (Neurontin) 600 mg PO TID [facility]; Protocol Last Admin: 06/15/18 13:24 Dose: 600 mg Vancomycin HCl (Vancomycin 1gm) 1 gm in 250 mls @ 167 mls/hr IVPB Q12 [facility]; Protocol Last Admin: 06/15/18 09:52 Dose: 167 mls/hr Meropenem (Merrem Iv 1 Gm Premix) 1 gm in 50 mls @ 100 mls/hr IVPB Q8 [facility]; Protocol Last Admin: 06/15/18 13:24 Dose: 100 mls/hr Insulin Detemir (Levemir) 25 unit SC BID [facility] Last Admin: 06/15/18 09:50 Dose: 25 units Insulin Human Regular (Humulin R Med) 0 units SC ACHS [facility]; Protocol Lisinopril (Zestril) 5 mg PO DAILY [facility] Last Admin: 06/15/18 09:51 Dose: 5 mg Nortriptyline HCl (Pamelor) 20 mg PO HS [facility] Last Admin: 06/14/18 21:25 Dose: 20 mg Nystatin (Nystop Topical Powder) 0 gm TOP BID [facility] Last Admin: 06/15/18 09:52 Dose: 1 appl Pantoprazole Sodium (Protonix Ec Tab) 40 mg PO DAILY [facility] Last Admin: 06/15/18 09:51 Dose: 40 mg - Labs Labs: 06/15/18 07:00 06/15/18 07:00 Attending/Attestation - Attestation I have personally seen and examined this patient.: Yes I have fully participated in the care of the patient.: Yes I have reviewed all pertinent clinical information, including history, physical exam and plan: Yes Notes (Text): 06/15/18 16:53 52 year old male with past medical history of hypertension, diabetes, and chronic back pain who presented with perineal rash for past few days. Pelvic CT was negative. Started on iv antibiotics and antifungal with improvement of rikki thema. ID and urology evaluation were requested; will follow up with recommendations. Possible d/c tomorrow if symptoms continue to improve. Continue with levemir and insulin ss for diabetes. Celine Keenan MD Hospitalist.
[2018-06-15] MEDS: Insulin Detemir 100 units/ml Vial (Levemir) SC SCH ×2 (09:50→18:22)
[2018-06-15] MEDS: Pantoprazole 40 mg EC Tab PO SCH (09:51)
[2018-06-15] MEDS: Vancomycin 1gm in NS 250ml 1 GM/250 ML BAG IVPB SCH ×2 (09:52→21:25)
[2018-06-15] MEDS: Nystatin 100,000 Units/gm Topical Pow(15 gm) TOP SCH ×2 (09:52→18:22)
[2018-06-15] MEDS ORDERED: Vancomycin 1gm in NS 250ml 1 GM/250 ML BAG IVPB SCH (10:00)
--- NOTE | 2018-06-15 14:52 | CON ---
DATE OF CONSULTATION: 06/15/2018 The patient is seen in bed 571, bed 2. CHIEF COMPLAINT: Pain around his testicles and around his groin times several days. HISTORY OF PRESENT ILLNESS: This is a 52-year-old male with hypertension, diabetes, hyperlipidemia, neuropathy, arthritis, chronic back pain, history of cellulitis of right leg, history of sciatic nerve pain, NO KNOWN ALLERGIES, who is admitted with an infection in his groin area for over a week he states, and it has been pretty green there, and it is not improved. REVIEW OF SYSTEMS: Reveals no fevers, no chills, no nausea, no vomiting, no chest pain, no diarrhea or constipation. On review of systems, a 12-point review of systems is performed. PAST MEDICAL HISTORY: Significant for hypertension, diabetes, hyperlipidemia, neuropathy, arthritis, chronic back pain. PAST SURGICAL HISTORY: The patient had orthopedic surgery. ALLERGIES: THE PATIENT HAS NO KNOWN ALLERGIES. MEDICATIONS: Medications at home reveals the patient to be on Neurontin, Flexeril, Lipitor, and Zestril. PHYSICAL EXAMINATION: GENERAL: The patient is in bed in no acute distress, nontoxic. VITAL SIGNS: Temperature of 98, blood pressure is 120/80, respiratory rate of 18, heart rate of 76. HEENT: Examination of HEENT is unremarkable. NECK: Supple. LUNGS: Have decreased breath sounds. HEART: Exam reveals normal S1, S2. ABDOMEN: Soft, nontender. No organomegaly. No rebound or guarding. No masses. Examination of the groin area and perineal area revealed no evidence of an active infection. There is erythema from what appears to be a chronic fungal infection. No discharge, and there is no foul odor. There are chronic changes of the skin. No acute evidence of any acute infection. LABORATORY DATA: Laboratory examination reveals a white count of 11,900, hemoglobin of 15. Chemistries are noted to be normal. The patient's urinalysis is reviewed to be negative. Microbiology is pending. The patient had a CT scan of the abdomen and pelvis, which is negative. ASSESSMENT AND PLAN: This is a 52-year-old with hypertension, diabetes, and presenting with perineal irritation secondary fungal dermatitis. I would recommend discontinue the antibiotic and complete 10 days of antifungal cream, should have an HIV test because of his age, and we will check on the cultures, and we will follow closely with you. Armin Mcadams MD
[2018-06-15 14:57] VITALS: O2SAT 98
[2018-06-15] MEDS: Insulin Reg-MEDIUM-Coverage SC SCH ×2 (16:53→22:00)
[2018-06-16] MEDS: Meropenem IV 1 gm in NS 1 GM/50 ML BAG IVPB SCH (05:31)
[2018-06-16 08:18] VITALS: BP 118/73; PULSE 86; TEMP 98.1
[2018-06-16 08:27] LABS: ALB/GLOB RATIO 1.2 (1.1-1.8); ALBUMIN 3.9 g/dL (3.0-4.8); ALT/SGPT 28 U/L (7-56); AST/SGOT 34 U/L (17-59); BLOOD UREA NITROGEN 13 mg/dL (7-21); GFR NON-AFRICAN AMERICAN > 60
[2018-06-16 08:41] LABS: BASO # 0.06 K/mm3 (0.0-2.0); BASO % 0.5 % (0.0-3.0); EOS # 0.3 (0.0-0.7); EOS % 2.4 % (1.5-5.0); HEMOGLOBIN 14.3 g/dL (14.0-18.0); LYMPH # 4.5 (1.2-3.4); LYMPH % 39.2 % (22.0-35.0); MEAN CELL VOLUME 90.2 fl (80.0-105.0); MEAN CORPUSCULAR HEMOGLOBIN 29.8 pg (25.0-35.0); MEAN PLATELET VOLUME 9.4 fl (7.0-11.0); MONO % 8.3 % (1.0-6.0); RBC 4.8 10^6/uL (3.5-6.1); WHITE BLOOD COUNT 11.5 10^3/uL (4.5-11.0)
[2018-06-16] MEDS: Pantoprazole 40 mg EC Tab PO SCH (09:47)
[2018-06-16] MEDS: Vancomycin 1gm in NS 250ml 1 GM/250 ML BAG IVPB SCH (09:47)
[2018-06-16] MEDS: Insulin Detemir 100 units/ml Vial (Levemir) SC SCH (09:49)
[2018-06-16] MEDS: Insulin Reg-MEDIUM-Coverage SC SCH ×2 (12:08→12:09)
--- NOTE | 2018-06-16 16:11 | PN ---
DATE: 06/16/2018 LOCATION: Patient seen in 1, bed 2. SUBJECTIVE: No fevers. No chills. Complaining of pain around his groin area, perineal area. No abdominal pain. PHYSICAL EXAMINATION: VITAL SIGNS: Temperature is 98, blood pressure is 118/70, respiratory rate of 18. HEENT: Unremarkable. NECK: Supple. LUNGS: Decreased breath sounds. HEART: Normal S1 and S2. ABDOMEN: Soft, nontender. Examination of the perineum is not changed. LABORATORY DATA: There is a white count of 11,500 and hemoglobin of 14. Chemistries are noted. Urinalysis is noted. Serology is noted. Microbiology, blood cultures are negative. No growth. Review of orders revealed the patient to be on vancomycin and meropenem. ASSESSMENT AND PLAN: This is a 52-year-old male with hypertension, diabetes presented with perineal irritation secondary to fungal dermatitis. Recommend discontinue the antibiotics and complete 10 days of antifungal cream and no evidence of an acute infection at this point. We will follow closely with you. Armin Mcadams MD
--- NOTE | 2018-06-16 17:12 | CP.PCM.DIS ---
<Renetta Holloway - Last Filed: 06/16/18 17:05> Provider - Provider Date of Admission: 06/14/18 14:38 Attending physician: Celine Keenan MD Primary care physician: Donna Pollack MD Consults: 06/14/18 15:16 Consult [Physician Consult] Routine Comment: Consulting Provider: Gunner Yancey Consulting Physician: Gunner Yancey Reason for Consult: perineal cellulitis 06/14/18 16:10 Infectious Disease Consult Routine Comment: Consulting Provider: Zeus Hunter Consulting Physician: Zeus Hunter Reason for Consult: perineum cellulitis Time Spent in preparation of Discharge (in minutes): 60 Diagnosis - Discharge Diagnosis (1) Cellulitis Status: Acute Hospital Course - Lab Results Lab Results: Micro Results 06/14/18 15:30 Blood-Venous Blood Culture - Preliminary NO GROWTH AFTER 48 HOURS 06/14/18 15:00 Blood-Venous Blood Culture - Preliminary NO GROWTH AFTER 48 HOURS Most Recent Lab Values WBC 11.5 10^3/uL (4.5-11.0) H 06/16/18 07:00 RBC 4.80 10^6/uL (3.5-6.1) 06/16/18 07:00 Hgb 14.3 g/dL (14.0-18.0) 06/16/18 07:00 Hct 43.3 % (42.0-52.0) 06/16/18 07:00 MCV 90.2 fl (80.0-105.0) 06/16/18 07:00 MCH 29.8 pg (25.0-35.0) 06/16/18 07:00 MCHC 33.0 g/dl (31.0-37.0) 06/16/18 07:00 RDW 13.0 % (11.5-14.5) 06/16/18 07:00 Plt Count 347 10^3/uL (120.0-450.0) 06/16/18 07:00 MPV 9.4 fl (7.0-11.0) 06/16/18 07:00 Neut % (Auto) 49.6 % (50.0-68.0) L 06/16/18 07:00 Lymph % (Auto) 39.2 % (22.0-35.0) H 06/16/18 07:00 [place] % (Auto) 8.3 % (1.0-6.0) H 06/16/18 07:00 Eos % (Auto) 2.4 % (1.5-5.0) 06/16/18 07:00 Baso % (Auto) 0.5 % (0.0-3.0) 06/16/18 07:00 Lymph # (Auto) 4.5 (1.2-3.4) H 06/16/18 07:00 [place] # (Auto) 1.0 (0.1-0.6) H 06/16/18 07:00 Eos # (Auto) 0.3 (0.0-0.7) 06/16/18 07:00 Baso # (Auto) 0.06 K/mm3 (0.0-2.0) 06/16/18 07:00 Absolute Neuts (auto) 5.68 (1.4-6.5) 06/16/18 07:00 Sodium 140 mmol/L (132-148) 06/16/18 07:30 Potassium 4.1 mmol/L (3.6-5.0) 06/16/18 07:30 Chloride 105 mmol/L (98-107) 06/16/18 07:30 Carbon Dioxide 27 mmol/L (21-33) 06/16/18 07:30 Anion Gap 12 (10-20) 06/16/18 07:30 BUN 13 mg/dL (7-21) 06/16/18 07:30 Creatinine 0.7 mg/dl (0.8-1.5) L 06/16/18 07:30 Est GFR ( Amer) > 60 06/16/18 07:30 Est GFR (Non-Af Amer) > 60 06/16/18 07:30 POC Glucose (mg/dL) 173 mg/dL (65-110) H 06/16/18 10:54 Random Glucose 173 mg/dL (70-110) H 06/16/18 07:30 Hemoglobin A1c 11.1 % (4.2-6.5) H D 06/14/18 11:45 Calcium 9.0 mg/dL (8.4-10.5) 06/16/18 07:30 Phosphorus 3.0 mg/dL (2.5-4.5) 06/15/18 07:00 Magnesium 1.8 mg/dL (1.7-2.2) 06/15/18 07:00 Total Bilirubin 0.2 mg/dL (0.2-1.3) 06/16/18 07:30 AST 34 U/L (17-59) 06/16/18 07:30 ALT 28 U/L (7-56) 06/16/18 07:30 Alkaline Phosphatase 90 U/L (38-126) 06/16/18 07:30 Total Protein 7.3 g/dL (5.8-8.3) 06/16/18 07:30 Albumin 3.9 g/dL (3.0-4.8) 06/16/18 07:30 Globulin 3.3 gm/dL 06/16/18 07:30 Albumin/Globulin Ratio 1.2 (1.1-1.8) 06/16/18 07:30 Triglycerides 223 mg/dL (35-160) H 06/14/18 11:57 Cholesterol 163 mg/dL (130-200) 06/14/18 11:57 LDL Cholesterol Direct 99 mg/dL (0-129) 06/14/18 11:57 HDL Cholesterol 25 mg/dL (29-60) L 06/14/18 11:57 Procalcitonin < 0.05 NG/ML (0.19-0.49) L 06/14/18 11:45 Urine Color Yellow (YELLOW) 06/14/18 17:30 Urine Appearance Clear (CLEAR) 06/14/18 17:30 Urine pH 6.0 (4.7-8.0) 06/14/18 17:30 Ur Specific [place] 1.015 (1.005-1.035) 06/14/18 17:30 Urine Protein Negative mg/dL (<30 mg/dL) 06/14/18 17:30 Urine Glucose (UA) Negative mg/dL (NEGATIVE) 06/14/18 17:30 Urine Ketones Negative mg/dL (NEGATIVE) 06/14/18 17:30 Urine Blood Negative (NEGATIVE) 06/14/18 17:30 Urine Nitrate Negative (NEGATIVE) 06/14/18 17:30 Urine Bilirubin Negative (NEGATIVE) 06/14/18 17:30 Urine Urobilinogen 0.2 E.U./dL (<1 E.U./dL) 06/14/18 17:30 Ur Leukocyte Esterase Negative [place]/uL (NEGATIVE) 06/14/18 17:30 HIV 1&2 Ag/Ab, 4th Gen Nonreactive (Nonreactive) 06/15/18 15:15 - Hospital Course Hospital Course: Renetta Holloway, PGY-1, Internal Medicine Discharge Summary for Dr. Keenan 52 year old male with past medical history of hypertension, diabetes mellitus, hyperlipidemia, neuropathy, arthritis, and chronic back pain presented with a perineal rash for 8 days. Patient reported that the rash was red, warm, and erythematous. He has had cellulitis of this area before treated with antibiotics that he cannot remember but the cellulitis was never this bad. Upon discharge, blood culture was negative for 48 hours. Patient was initially started on vancomycin, zosyn, and nystatin powder and deescalated to nystatin powder upon discharge as per ID. Patient was given 10 days of nystatin powder for further outpatient treatment of his perineal rash. Patient has an increased risk for this rash likely 2/2 to diabetes mellitus. His glucose ranged from 170s to 260s throughout this admission as he was placed on levemir 25 U BID and a sliding scale insulin. As patient's rash improved with nystatin powder and patient needed no IV antibiotics, patient was deemed stable for discharge. Patient was told to follow up with your PCP within 7-14 days. Patient was told to take all home medications as prescribed and asked to apply nystatin powder 2x a day for 10 days for resolution of perineum rash. HIV testing was recommended outpatient because of his age as per infectious disease. Patient was told to return to the emergency department if he have any new or concerning symptoms. This is a brief summary of the events that occurred at the hospital. For more information, please refer to hospital documentation. - Date & Time of H&P Date of H&P: 06/14/18 Time of H&P: 16:24 Discharge Exam - Head Exam Head Exam: ATRAUMATIC, NORMAL INSPECTION, NORMOCEPHALIC - Eye Exam Eye Exam: EOMI, PERRL - Respiratory Exam Respiratory Exam: Clear to PA & Lateral, UNREMARKABLE - Cardiovascular Exam Cardiovascular Exam: REGULAR RHYTHM, RRR - GI/Abdominal Exam GI & Abdominal Exam: Normal Bowel Sounds, Soft. absent: Tenderness - Extremities Exam Extremities exam: full ROM - Neurological Exam Neurological exam: Alert, CN II-XII Intact, Oriented x3 - Skin Skin Exam: Dry, Intact Additional comments: erythematous rash around perineal region encompassing bilateral testicles with an isolated spot on left lower extremity improved today Discharge Plan - Discharge Medications Prescriptions: Insulin Detemir [Levemir] 50 unit SC BID 14 Days #1400 unit Nystatin [Nystop Topical Powder] 1 oz TOP BID 10 Days #1 bottle - Follow Up Plan Condition: STABLE Disposition: HOME/ ROUTINE Instructions: Dangers of Secondhand Smoke, Cellulitis (DC) Additional Instructions: Please follow up with your PCP within 7-14 days. Please take all home medications as prescribed. Please apply nystatin powder 2x a day for 10 days for resolution of perineum rash. HIV testing is recommended outpatient because of your age as per infectious disease. Please return to the emergency department if you have any new or concerning symptoms. Referrals: Donna Pollack MD [Primary Care Provider] - <Celine Keenan - Last Filed: 06/17/18 07:35> Provider - Provider Date of Admission: 06/14/18 14:38 Attending physician: Celine Keenan MD Primary care physician: Donna Pollack MD Consults: 06/14/18 15:16 Consult [Physician Consult] Routine Comment: Consulting Provider: Gunner Yancey Consulting Physician: Gunner Yancey Reason for Consult: perineal cellulitis 06/14/18 16:10 Infectious Disease Consult Routine Comment: Consulting Provider: Zeus Hunter Consulting Physician: Zeus Hunter Reason for Consult: perineum cellulitis Hospital Course - Lab Results Lab Results: Micro Results 06/14/18 15:30 Blood-Venous Blood Culture - Preliminary NO GROWTH AFTER 48 HOURS 06/14/18 15:00 Blood-Venous Blood Culture - Preliminary NO GROWTH AFTER 48 HOURS Most Recent Lab Values WBC 11.5 10^3/uL (4.5-11.0) H 06/16/18 07:00 RBC 4.80 10^6/uL (3.5-6.1) 06/16/18 07:00 Hgb 14.3 g/dL (14.0-18.0) 06/16/18 07:00 Hct 43.3 % (42.0-52.0) 06/16/18 07:00 MCV 90.2 fl (80.0-105.0) 06/16/18 07:00 MCH 29.8 pg (25.0-35.0) 06/16/18 07:00 MCHC 33.0 g/dl (31.0-37.0) 06/16/18 07:00 RDW 13.0 % (11.5-14.5) 06/16/18 07:00 Plt Count 347 10^3/uL (120.0-450.0) 06/16/18 07:00 MPV 9.4 fl (7.0-11.0) 06/16/18 07:00 Neut % (Auto) 49.6 % (50.0-68.0) L 06/16/18 07:00 Lymph % (Auto) 39.2 % (22.0-35.0) H 06/16/18 07:00 [place] % (Auto) 8.3 % (1.0-6.0) H 06/16/18 07:00 Eos % (Auto) 2.4 % (1.5-5.0) 06/16/18 07:00 Baso % (Auto) 0.5 % (0.0-3.0) 06/16/18 07:00 Lymph # (Auto) 4.5 (1.2-3.4) H 06/16/18 07:00 [place] # (Auto) 1.0 (0.1-0.6) H 06/16/18 07:00 Eos # (Auto) 0.3 (0.0-0.7) 06/16/18 07:00 Baso # (Auto) 0.06 K/mm3 (0.0-2.0) 06/16/18 07:00 Absolute Neuts (auto) 5.68 (1.4-6.5) 06/16/18 07:00 Sodium 140 mmol/L (132-148) 06/16/18 07:30 Potassium 4.1 mmol/L (3.6-5.0) 06/16/18 07:30 Chloride 105 mmol/L (98-107) 06/16/18 07:30 Carbon Dioxide 27 mmol/L (21-33) 06/16/18 07:30 Anion Gap 12 (10-20) 06/16/18 07:30 BUN 13 mg/dL (7-21) 06/16/18 07:30 Creatinine 0.7 mg/dl (0.8-1.5) L 06/16/18 07:30 Est GFR ( Amer) > 60 06/16/18 07:30 Est GFR (Non-Af Amer) > 60 06/16/18 07:30 POC Glucose (mg/dL) 173 mg/dL (65-110) H 06/16/18 10:54 Random Glucose 173 mg/dL (70-110) H 06/16/18 07:30 Hemoglobin A1c 11.1 % (4.2-6.5) H D 06/14/18 11:45 Calcium 9.0 mg/dL (8.4-10.5) 06/16/18 07:30 Phosphorus 3.0 mg/dL (2.5-4.5) 06/15/18 07:00 Magnesium 1.8 mg/dL (1.7-2.2) 06/15/18 07:00 Total Bilirubin 0.2 mg/dL (0.2-1.3) 06/16/18 07:30 AST 34 U/L (17-59) 06/16/18 07:30 ALT 28 U/L (7-56) 06/16/18 07:30 Alkaline Phosphatase 90 U/L (38-126) 06/16/18 07:30 Total Protein 7.3 g/dL (5.8-8.3) 06/16/18 07:30 Albumin 3.9 g/dL (3.0-4.8) 06/16/18 07:30 Globulin 3.3 gm/dL 06/16/18 07:30 Albumin/Globulin Ratio 1.2 (1.1-1.8) 06/16/18 07:30 Triglycerides 223 mg/dL (35-160) H 06/14/18 11:57 Cholesterol 163 mg/dL (130-200) 06/14/18 11:57 LDL Cholesterol Direct 99 mg/dL (0-129) 06/14/18 11:57 HDL Cholesterol 25 mg/dL (29-60) L 06/14/18 11:57 Procalcitonin < 0.05 NG/ML (0.19-0.49) L 06/14/18 11:45 Urine Color Yellow (YELLOW) 06/14/18 17:30 Urine Appearance Clear (CLEAR) 06/14/18 17:30 Urine pH 6.0 (4.7-8.0) 06/14/18 17:30 Ur Specific [place] 1.015 (1.005-1.035) 06/14/18 17:30 Urine Protein Negative mg/dL (<30 mg/dL) 06/14/18 17:30 Urine Glucose (UA) Negative mg/dL (NEGATIVE) 06/14/18 17:30 Urine Ketones Negative mg/dL (NEGATIVE) 06/14/18 17:30 Urine Blood Negative (NEGATIVE) 06/14/18 17:30 Urine Nitrate Negative (NEGATIVE) 06/14/18 17:30 Urine Bilirubin Negative (NEGATIVE) 06/14/18 17:30 Urine Urobilinogen 0.2 E.U./dL (<1 E.U./dL) 06/14/18 17:30 Ur Leukocyte Esterase Negative [place]/uL (NEGATIVE) 06/14/18 17:30 HIV 1&2 Ag/Ab, 4th Gen Nonreactive (Nonreactive) 06/15/18 15:15 Attending/Attestation - Attestation I have personally seen and examined this patient.: Yes I have fully participated in the care of the patient.: Yes I have reviewed all pertinent clinical information, including history, physical exam and plan: Yes Notes (Text): 06/16/18 52 year old male with past medical history of hypertension, diabetes, and chronic back pain who presented with perineal rash for past few days. Pelvic CT was negative. Started on iv antibiotics and antifungal with improvement of erythema. Seen by ID. Patient is discharged home to follow up with pmd. Follow up with urology. Celine Keenan MD Hospitalist.
== END 2018-06-16 15:42 | disposition home or self-care (01) | DRG 603 ==
LOC: ED 10:14 → ERH 14:38 → 5RSO 17:46
PROVIDERS: ADMIT Hospitalist; ATTEND Internal Medicine
DX: L03.315 Cellulitis of perineum (principal); E10.40 Type 1 diabetes mellitus with diabetic neuropathy, unspecified; E78.5 Hyperlipidemia, unspecified; B36.9 Superficial mycosis, unspecified; G89.29 Other chronic pain; I10 Essential (primary) hypertension; M19.90 Unspecified osteoarthritis, unspecified site; S31.21XA Laceration without foreign body of penis, initial encounter; Z83.3 Family history of diabetes mellitus; Z84.1 Family history of disorders of kidney and ureter; Z87.891 Personal history of nicotine dependence